=== PATIENT | male | born 2000 | race Caucasian/White ===

== ENCOUNTER 2024-12-28 09:18 | Day surgery (SDC) | payer OTHER, SELFPAY ==
[2024-12-28] VITALS (12 sets, daily range): BP systolic 97–128; BP diastolic 53–92; BMI 23.5
--- NOTE | 2024-12-28 07:38 | ED.GENMED ---
History of Present Illness
General
Chief Complaint: Abdominal Symptoms
Source: patient
Exam Limitations: none
Time Seen by Provider: 12/28/24 07:18
History of Present Illness
History of Present Illness:
24yoM with no significant past medical history presenting with his significant other for evaluation of right testicular pain. Symptoms began abruptly 2 hours ago when he was getting out of the shower. He reports severe pain in his right testicle
with associated swelling. Pain radiates to the RLQ and R flank. He is having associated nausea but denies vomiting. He denies any dysuria, hematuria, fevers. No trauma.
Past History
Past History
ED Past Medical History: None
ED Past Surgical History: None
Phy Exam
General Physical Exam
General Presentation: moderate distress
General Skin: warm and dry
General Habitus: normal
General Mental: alert
ENT Exam
ENT Exam: normocephalic
Pulmonary Exam
Pulmonary Exam: no respiratory distress
Gastrointestinal Exam
Gastrointestinal Exam: soft, non distended and other (+RLQ tenderness)
Genitourinary Exam Male
Exam Male: other (R testicle is high riding, tense, and exquisitely tender to touch. )
Neurological Exam
Neurological Exam: alert
Crook Coma Scale
Eye Opening: Spontaneous
Verbal Response: Oriented
Motor Response: Obeys Commands
GCS Total Score: 15
Skin Exam
Skin Exam: normal color and warm/dry
Psychiatric Exam
Psychiatric Exam: normal mood/affect
Course
Orders/Labs/Results
Orders:
Orders
12/28/24 07:30
HYDROmorphone [Dilaudid] 1 mg IV NOW STA
Ondansetron Injectable [Zofran] 4 mg IV NOW STA
Scrotum US [US Scrotum] Urgent
Comment:
Reason For Exam: R testicular pain
12/28/24 07:32
0.9% Sodium Chloride 1000 ml [Nss] 1,000 ml IV BOLUS
12/28/24 07:57
HYDROmorphone [Dilaudid] 1 mg .ROUTE .STK-MED ONE
12/28/24 08:14
Complete Blood Count/With Diff Urgent
Comprehensive Metabolic Panel Urgent
12/28/24 08:36
Fentanyl Citrate/Pf [Sublimaze] 25 mcg IV [id number] PRN
Fentanyl Citrate/Pf [Sublimaze] 25 mcg IV PACU-Q5MPRN PRN
Fentanyl Citrate/Pf [Sublimaze] 50 mcg IV PACU-Q5MPRN PRN
Ondansetron Injectable [Zofran] 4 mg IV PACU-ONCEPRN PRN
Prochlorperazine [Compazine] 5 mg IV PACU-ONCEPRN PRN
Notify MD As Directed
Notify physician if: for SDS patients with known or suspected sleep obstructive sleep apnea, monitor in the
PACU.
Notify MD for any apneic/desaturation episodes
O2 Therapy [RESP] Urgent
Titrate/Wean O2 to maintain O2 sat greater than (%): 92
Special Instructions: -Provide supplemental oxygen to achieve O2 sat of 92% or greater.
-After 15 min, may wean O2 and discontinue if patient is able to maintain O2 sat of 92%
or greater during recovery period.
If patient is a discharge home, without oxygen therapy, notify anestheiologist if
unable to maintain O2 SAT of 92% or greater on room air for MD clearance.
12/28/24 08:41
Bupivacaine Mpf 0.25% [Sensorcaine-Mpf 0.25% Vial] 30 ml .ROUTE .STK-MED ONE
12/28/24 08:45
Normosol (Mult Electrolytes) [Normosol-R/Plasmalyte-A] 1,000 ml IV PER PROTOCOL
12/28/24 09:00
Fentanyl Citrate/Pf [Sublimaze] 100 mcg .ROUTE .STK-MED ONE
Midazolam HCl [Versed] 2 mg .ROUTE .STK-MED ONE
12/28/24 09:01
Lidocaine 2% Mpf [Xylocaine Mpf 2%] 100 mg .ROUTE .STK-MED ONE
Lidocaine 2% Mpf [Xylocaine Mpf 2%] 100 mg .ROUTE .STK-MED ONE
Propofol [Diprivan] 40 ml .ROUTE .STK-MED
12/28/24 09:02
Dexamethasone Sod Phosphate [Decadron] 20 mg .ROUTE .STK-MED ONE
Ondansetron Injectable [Zofran] 4 mg .ROUTE .STK-MED ONE
12/28/24 10:00
Acetaminophen [Tylenol] 650 mg PO SDS-Q4HPRN PRN
Ondansetron Injectable [Zofran] 4 mg IV SDS-ONCEPRN PRN
Oxycodone [Roxicodone] 10 mg PO SDS-Q4HPRN PRN
Oxycodone [Roxicodone] 5 mg PO SDS-Q4HPRN PRN
Abnormal Lab Results
12/28/24
08:14
WBC 11.2 H 10^3/uL
(4.8-10.8)
Abs Immat Gran (auto) 0.1 H 10^3/uL
(0-0.05)
Absolute Neuts (auto) 8.9 H 10^3/uL
(1.4-6.5)
Neutrophils % 79.5 H %
(42.2-75.2)
Lymphocytes % 15.0 L %
(20.5-51.1)
Glucose 129 H mg/dl
(70-99)
12/28/24 08:14
12/28/24 08:14
Vital Signs
Initial and Last Documented VS:
Initial Vital Signs
Pulse Resp Pulse Ox
65 16 100
12/28/24 07:16 12/28/24 07:16 12/28/24 07:16
Last Documented Vital Signs
Temp Pulse Resp BP Pulse Ox
97.9 F 70 14 105/59 99
12/28/24 10:28 12/28/24 10:30 12/28/24 10:30 12/28/24 10:30 12/28/24 10:30
MDM/Problems Addressed
Differential Diagnosis Includes:
24yoM here with severe R testicular pain x 2 hours. Radiates to RLQ/R flank. Associated with nausea. VSS. Patient is in acute distress 2/2 pain. R testicle is high riding and exquisitely tender to touch. Differential diagnosis includes: testicular
torsion, hernia, epididymitis, kidney stone
Initial ED plan: Given high clinical concern for torsion, I called ultrasound immediately to obtain STAT study. Will obtain IV access, check labs/UA, and give IV Dilaudid/Zofran for symptoms.
*Pulse Oximetry
SaO2: 100
Oxygen Mode of Delivery: Room air
Patient hypoxic: no
*Critical Care Note
Total Time (30-74mins, 75-104mins- exclusive of procedures): 35
Update Note
Update Note:
Ultrasound called and confirmed that there was no blood flow to R testicle. I immediately sent a priority message to safety consultant urologist. Patient, significant other, and father updated on test results and care plan. He was transferred to the OR for
definitive treatment.
ED Attending Note
-
Portions of this chart may have been created with voice recognition software.� Occasional wrong word or��sound alike� substitutions may have occurred due to the inherent limitations of voice recognition software.
Discharge Plan
Departure
Patient Disposition: OR
Date of Disposition: 12/28/24
Time of Disposition: 08:16
Presentation/result/management discussed w/ accepting MD/DO: Dr. Espinal
Discharge Problem:
Right testicular torsion
Interventions
Interventions:
*Risk Screen - Suicide Last Done: 12/28/24 07:16
*General Assessment Last Done: 12/28/24 09:03
*Neglect/Abuse Screening Last Done: 12/28/24 07:16
*ED- Fall Risk Assessment Last Done: 12/28/24 09:03
*Nursing Disposition Last Done: 12/28/24 08:40
PC-Yvkyfq-Nwmsmrtxhh Assessment Last Done: 12/28/24 09:03
Discharge Date and Time
Discharge Date/Time: 12/28/24 08:53
[2024-12-28] MEDS: DILAUDID 1 MG IV (07:40)
[2024-12-28] MEDS: ZOFRAN 4 MG IV (07:41)
[2024-12-28] MEDS: NSS 1000 IV (07:43)
[2024-12-28 08:28] LABS: Hematocrit 42.3 % (39.0-52.0); Hemoglobin 15.0 g/dL (13.0-18.0); Mean Corp Hgb Conc. 35.5 g/dL (33.0-37.0); Mean Corpuscular Volume 86.2 fL (80.0-94.0); Nucleated Red Blood Cells % 0 % (-); Platelet Count 254 10^3/uL (130-400); Red Cell Dist. Width 13.1 % (11.5-14.5)
[2024-12-28 08:53] LABS: ALT (SGPT) 25 U/L (0-50); AST (SGOT) 29 U/L (17-59); Albumin 4.3 g/dl (3.5-5.0); Alkaline Phosphatase 50 U/L (38-126); Blood Urea Nitrogen 15 mg/dl (9-20); Calcium 9.2 mg/dl (8.4-10.2); Carbon Dioxide 22 mmol/L (22-30); Chloride 107 mmol/L (98-107); Estimated Creatinine Clearance > 125 ml/min; Glucose 129 mg/dl (70-99); Potassium 3.9 mmol/L (3.5-5.1); Sodium 138 mmol/L (135-145); Total Protein 7.0 g/dl (6.3-8.2); eGFR > 60.00
--- NOTE | 2024-12-28 10:21 | HP.FOC2 ---
Focused History & Physical
Chief Complaint
HPI:
Chief Complaint: R testicle pain
HPI / Indication for Planned Procedure: 24M with acute onset R testicle pain and swelling overnight
In ER, US showed lack of blood flow c/w testicular torsion
Relevant Past Medical History: Negative
Relevant Social History: ETOH
Relevant Family History: Negative
Relevant Past Surgical History: Negative
Review of Systems
Review of Pertinent Systems: All Systems Negative
Medication
See Medication form for detailed medications: No
Medication List (including Herbals & OTC):
None
Medications Reviewed: Yes
Allergies and Reactions
Patient has Allergies: No
Noted Allergies and Reactions:
Allergy/AdvReac Type Severity Reaction Status Date / Time
No Known Allergies Allergy Verified 12/28/24 07:17
Pertinent Physical Exam
All Other Systems: Negative
Lungs: Normal
Heart: Normal
Abdomen: Normal
Diagnosis / Assessment
24M with R testicular torsion
Plan / Procedure
OR for bilateral orchiopexy
[2024-12-28] MEDS: TYLENOL 650 MG PO (11:33)
== END 2024-12-28 12:07 | disposition home or self-care (01) ==
LOC: SDS 09:18
PROVIDERS: Physician Assistant; ATTENDING PHYSICIAN Urology; EMERGENCY PHYSICIAN Emergency Medicine; FAMILY PHYSICIAN Nurse Practitioner Family
DX: N44.00 Torsion of testis, unspecified (principal)
CPT/HCPCS: 54640; 76870; 80053; 85025; 93976; 99291